=== PATIENT | male | born 1965 | race Caucasian/White ===

== ENCOUNTER 2021-05-27 10:09 | Day surgery (SDC) | payer OTHER, SELFPAY ==
--- NOTE | 2021-05-26 17:59 | HP.PCM_ITS ---
History and Physical Date of Admission: 05/27/21 HISTORY AND PHYSICAL ? Hebert Thakur 1965 ? ? REFERRING PHYSICIAN: Tayla Cochran APRN.C* ? CHIEF COMPLAINT: Consult (umbilical hernia) ? HPI: The patient is a 56 year old male presents with umbilical hernia. He has noted it protruding more due to about a 10# intentional weight loss. He denies obstructing gastrointestinal and/or urinary symptoms. He denies episode of incarceration. He denies previous hernia repair in the area. ? ? PAST MEDICAL HISTORY ? Diabetes mellitus without mention of complication ? ? Diabetes mellitus ? HTN (hypertension) ? ? Hypercholesteremia ? ? Umbilical hernia ? ? PAST SURGICAL HISTORY ? COLONOSCOP W/ OR W/O [facility] SPEC ? 12/27/2017 ? Colonoscopy ? ? Current Outpatient Medications ? pravastatin (PRAVACHOL) 80 mg tablet Take 1 tablet by mouth daily at bedtime. ? metFORMIN (GLUCOPHAGE) 850 mg tablet Take 1 tablet by mouth three times daily with meals. ? losartan (COZAAR) 100 mg tablet Take 1 tablet by mouth once daily. ? glyBURIDE (DIABETA) 5 mg tablet Take 1 tablet by mouth once daily. ? aspirin, enteric coated (ASPIRIN LOW DOSE) 81 mg EC tablet Take 1 tablet by mouth once daily. ? ? ALLERGIES: Lisinopril ? PERSONAL HISTORY: ?? Smoking status: Never Smoker ? Smokeless tobacco: Never Used Vaping Use ? Vaping Use: Never used Substance Use Topics ? Alcohol use: Yes ? Drug use: No ? FAMILY HISTORY ? Diabetes Father ? ? Heart Father ? ? Asthma Mother ? ? Diabetes Brother ? ? ? Nursing Notes: Arpita Eaton RN 05/12/2021 8:07 AM Signed REVIEW OF SYSTEMS: General: The patient denies fatigue, denies weight loss, denies weight gain, denies feeling hot, and denies feelings of cold. Eyes: The patient denies glaucoma, denies eye injury/surgery, wears glasses or contacts. Ear/Nose/Throat: The patient NOTES allergies, denies hayfever, denies ear infections, and denies bloody noses. Cardiovascular: The patient denies chest pain, denies heart disease, NOTES high blood pressure,denies cardiac stent, denies prior heart attack, denies irregular heart beat, NOTES high cholesterol, denies poor circulation, denies heart failure, other cardiac issues, denies claudication, denies cold feet, denies peripheral arterial stent. Respiratory: The patient denies tuberculosis, denies pneumonia, denies frequent cough, denies pulmonary embolism, denies shortness of breath, and denies coughing up blood. Gastrointestinal: The patient denies difficulty swallowing, denies acid reflux, denies ulcers, denies vomiting, denies jaundice/hepatitis, denies gallbladder problems, denies black or tarry stools, denies hemorrhoids, denies bleeding from rectum, denies diverticulitis, denies constipation, denies diarrhea, denies loss of stool control, and NOTES hernias. Kidney/Bladder: The patient denies kidney stones, denies urine infections, and denies bloody urine. Skin: The patient denies a history of skin cancer, denies bleeding/changing moles, and denies a history of skin rash. Neurologic: The patient denies a history of epilepsy/convulsions, denies headaches, denies head/spinal injuries, and denies stroke/TIA. Psychiatric: The patient denies psychiatric medications, denies depression , and denies voices, denies substance abuse. Endocrine: The patient denies thyroid disorders, NOTES diabetes, and denies hormonal problems. Hematologic: The patient denies a history of bruising, denies bleeding, and denies anemia, denies blood clots. Infections: The patient denies a history of measles and mumps, denies rheumatic fever, and denies sexually transmitted diseases. Musculoskeletal: The patient denies back pain/injury, denies back problems, denies sciatica, denies knee/foot trouble, denies arthritis, or denies gout. When was patient's last Mammogram screening? N/A Last Colonoscopy: 2018 Arpita Eaton RN ? ? PHYSICAL EXAMINATION: General: The patient is 56 year old male, well nourished, well hydrated in no acute distress. The patient is oriented to time, place, and person. VITALS: Blood pressure 156/84, pulse 86, temperature 36.6 ?C (97.9 ?F), height 182.9 cm (6'), weight 114.9 kg (253 lb 3.2 oz), SpO2 99 %. Body mass index is 3 4.34 kg/m?.? Head ? Normocephalic. EOM intact with sclera clear and no icterus noted. Neck - supple with no jugular venous distention noted. Trachea is midline. Lungs ? clear to auscultation. Normal breath sounds. No rales/rhonchi/wheezing noted. No labored breathing noted, such as retractions. No cough heard. Heart ? normal S1 and S2 auscultated. No rubs/clicks/murmurs noted. Regular rate. Abdomen ? soft and benign. Normal bowel sounds. Umbilical hernia present, no evidence of gangrene. Extremities ? no calf tenderness noted. No pitting edema noted. Skin ? normal skin integrity. Neurological ? gait normal, no focal deficits noted. Psych ? calm and appropriate ? IMPRESSION: umbilical hernia ? PLAN: I have discussed the above with the patient. I have offered umbilical hernia repair. I have explained the procedure to the patient. I have counseled the patient as to the risks of the procedure, including but not limited to: infection, bleeding, injury to any blood vessels/nerves, scar tissue, injury to any intrabdominal organs, injury to bowel/bladder, intraabdominal abscess/bleeding, recurrence of hernia, wound infections, complications of anesthesia, etc. ? the patient understands. The patient wishes to proceed. I have answered all questions to the patient?s satisfaction and the patient has no further questions. Diagnoses: (K42.9) Umbilical hernia without obstruction or gangrene
[2021-05-26] MEDS: Lactated Ringers 1,000 ML 75 ML IV (18:05)
--- NOTE | 2021-05-27 10:25 | EKG12_ITS ---
Test Reason : PREOP Blood Pressure : / mmHG Vent. Rate : 068 BPM Atrial Rate : 068 BPM P-R Int : 164 ms QRS Dur : 086 ms QT Int : 404 ms P-R-T Axes : 039 006 017 degrees QTc Int : 429 ms Normal sinus rhythm Normal ECG Confirmed by YANELIS ANTOINE, DEX ([id number]), assistant editor MAT GARCIA ([id number]) on 05/29/2021 9:09:21 AM Referred By: Zenaida Felix Confirmed By:DEX HILARIO MD
[2021-05-27 11:06] VITALS: BP 157/98; PULSE 74; RESP 16; TEMP 37.1; O2SAT 96; BMI 33.5
[2021-05-27 11:25] LABS: Anion Gap 6 (5-15); BUN 15 mg/dL (7-18); BUN/Creat Ratio 11.5 RATIO (10-20); Chloride 105 mmol/L (98-107); Creatinine, Serum 1.31 mg/dL (0.70-1.30); EST Glomerular Filtration Rate 60 mL/min (>60); Est Glom Filt Rate - Afr Amer 72 mL/min (>60); Estimated Creatinine Clearance 68.29 ml/min; Glucose 149 mg/dL (74-106); Potassium 4.4 mmol/L (3.5-5.1); Sodium Level 138 mmol/L (136-145)
[2021-05-27 11:26] LABS: Hemoglobin A1c 6.4 % (3.8-5.6)
[2021-05-27 11:50] LABS: Bedside Glucose 168 mg/dL (70-110)
[2021-05-27] MEDS: Cefazolin 2 GM in 0.9% Normal Saline 100 ML IV (13:05)
[2021-05-27] MEDS: Lidocaine 1% /Epi 1:100 (20ml) 20 ML Vial (13:20)
--- NOTE | 2021-05-27 13:48 | PCM.OPRPT ---
Report of Operation Date of Procedure: 05/27/21 Pre-Operative Diagnosis: umbilical hernia Post-Operative Diagnosis: same Surgery/Procedure Performed:: umbilical hernia repair Description of Surgical Findings:: umbilical hernia - 2 cm fascial defect with incarcerated preperitoneal fat Surgeon: Zenaida Felix Type of Anesthesia: MAC/Supplemental/Local Anesthesiologist: Davy Montesinos Estimated Blood Loss (mL): < 5 ml Fluids Replaced: 800 ml RL Description of Procedure: After informed consent was obtained, the patient was brought to the Operating Room. Appropriate time out protocol was followed. He was placed in the supine position. The patient was then placed under anesthesia. The abdomen was then prepped with a sterile surgical skin preparation. Sterile surgical drapes were placed. This skin and subcutaneous tissues were then widely infiltrated with the local anesthetic. A skin incision was then made with a 15 blade scalpel inferior to the umbilical hernia in a curvilinear transverse fashion. It was carried down to the subcutaneous tissues using sharp dissection. Any hemorrhage was adequately controlled with electrocautery. Blunt dissection was done to separate the subcutaneous tissues from the umbilical hernia sac. The sac once freed of the subcutaneous tissues was then freed from the dermis of the umbilical skin. The sac was then freed up from the fascial surface. The fascial defect was then properly outlined. The sac was from the fascial opening. It was reduced back into the intraabdominal cavity. The fascial defect was then closed transversely with interrupted 0 PDS suture. Hemostasis was controlled with electrocautery. The subdermis was reapproximated with interrupted 3-0 vicryl sutures. The skin incision was reapproximated with a running 4-0 Monocryl suture. Sponge, suture and instrument count were verified and correct. Cavilon and steristrips were placed to reinforce the skin closure and a sterile opsite dressing was applied. The patient was brought from to the Recovery Room in stable condition. Complications none noted Admit VTE Documentation VTE Present on Admission: Yes VTE Mechan Device Prophylaxis: SCD's
[2021-05-27 14:03] VITALS: BP 131/76; BP 157/98; PULSE 73; RESP 18; TEMP 36.7; O2SAT 96
[2021-05-27 14:15] VITALS: BP 137/83; BP 157/98; PULSE 75; RESP 18; O2SAT 96
--- NOTE | 2021-05-27 14:18 | DCINST_ITS ---
Discharge Instructions Follow Up Care Test Results: Test results from this visit will be discussed in further detail at your follow-up appointment, if applicable. Discharge Plan Admission Attending Provider: Zenaida Felix Primary Care Provider: Jacoby Allen Instructions Additional Instructions / Restrictions: Recommended pain control regimen - May take 600 mg ibuprofen (Motrin) and then in 3-4 hours, may take 650 mg acetaminophen (Tylenol), then in 3-4 hours may take 600 mg ibuprofen, then in 3- 4 hours may take 650 mg acetaminophen and so on for 2-3 days May take narcotic pain medication for pain that is not controlled by above and at night for comfort through the night Leave dressings in place May shower, do not scrub in the areas of the dressings as they may unravel. If they become overly soiled you may remove them but leave incision site open to air. Do not soak - no tub baths/swimming Ice applied to area of discomfort may help No lifting/pushing/pulling greater than 10-20 pounds for a month. Regular diet as tolerated, drink plenty of fluids. Avoid carbonated beverages for a couple of days as this will cause abdominal bloating and thus discomfort after our surgery. Please call my office for an appointment to see me in 1-2 weeks. Office number is If any questions, please call my office at and ask the chief operator reformer for the general surgery nurses desk Discharge Orders/Prescriptions Prescriptions: New hydrocodone-acetaminophen 5-325 mg tablet 1 tab PO Q8H 5 Days Qty: 15 RF: 0 No Action glipizide 5 mg Tablet Extended Release 24hr 5 mg PO DAILY RF: 0 metformin 850 mg Tablet 850 mg PO TID RF: 0 aspirin [Aspir-81] 81 mg Tablet,Delayed Release (Dr/Ec) 81 mg PO DAILY RF: 0 pravastatin 80 mg Tablet 80 mg PO QHS RF: 0 losartan 100 mg Tablet 100 mg PO DAILY RF: 0 Referrals / Follow Up: Jacoby Allen MD [Primary Care Provider] - Disposition Disposition (needs filled in before D/C Order can be placed): Home, Self Care
[2021-05-27 14:30] VITALS: BP 138/81; BP 157/98; PULSE 68; RESP 18; O2SAT 96
[2021-05-27 14:50] VITALS: BP 130/91; BP 157/98; PULSE 73; RESP 18; TEMP 36.7; O2SAT 96
== END 2021-05-27 15:34 | disposition home or self-care (01) ==
LOC: SDC 10:13 → AC 10:15
PROVIDERS: Anesthesiology; PCP Family Medicine; Referring Provider Surgery; Visit Provider Surgery
PROC: (CPT 49587; principal; 2021-05-27 11:45)
DX: K42.0 Umbilical hernia with obstruction, without gangrene (principal); E11.9 Type 2 diabetes mellitus without complications; E78.00 Pure hypercholesterolemia, unspecified; I10 Essential (primary) hypertension; Z79.84 Long term (current) use of oral hypoglycemic drugs; Z79.82 Long term (current) use of aspirin; Z79.899 Other long term (current) drug therapy
CPT/HCPCS: 00840; 49587; 80048; 82962; 83036; 93005; J7120